=== PATIENT | male | born 1950 | race African-American/Black ===

== ENCOUNTER 2020-03-14 11:26 | Emergency (ER) | payer OTHER, MEDICARE ==
[~2020-03-14] VITALS: Ht 180.3 cm; Wt 90.7 kg
[~2020-03-14 11:26] MED LIST: ASPIR 8181 MG PO; CARDURA4 MG PO; CO Q-10100 MG PO; GLUCOTROL5 MG PO; HYZAAR 50-12.51 EACH PO; LIPITOR 10 MG10 M1 PO; METFORMIN HCL500 MG PO; NORVASC10 MG PO; ODOR FREE GARL100 MG PO; VITAMIN D1000 UNI1 PO
[2020-03-14 12:20] LABS: URINE BILIRUBIN NEGATIVE (Negative); URINE BLOOD TRACE (Negative); URINE CLARITY SL CLOUDY; URINE COLOR YELLOW; URINE GLUCOSE-RANDOM* NEGATIVE (Negative); URINE KETONES NEGATIVE (Negative); URINE NITRITE-REFLEX NEGATIVE (Negative); URINE PROTEIN (DIPSTICK) NEGATIVE (Negative); URINE UROBILINOGEN 0.2 E.U./dl (0.2-1.0)
[2020-03-14 12:29] LABS: URINE LEUKOCYTES-REFLEX 3+ (Negative)
[2020-03-14 12:45] LABS: HEMOGLOBIN 12.8 gm/dL (14.0-18.0); MCH 22.8 pg (26.0-34.0); MCHC 32.1 g/dL (28.0-37.0); MCV 71.2 fL (80.0-100.0); RBC 5.62 mil/uL (4.50-6.00); RDW 16.1 % (10.5-14.5); WBC 8.7 thou/uL (4.0-11.0)
[2020-03-14 12:55] LABS: CALCIUM 8.6 mg/dL (8.5-10.1); CREATININE 1.4 mg/dL (0.7-1.3)
[2020-03-14 13:11] LABS: BACTERIA-REFLEX >30 Many /HPF (None Seen); SQUAMOUS 0-3 Few /LPF (0-3); URINE WBC-REFLEX >25 Many /HPF (0-5)
[2020-03-14 13:12] LABS: CASTS None Seen /LPF (None Seen); CRYSTALS None Seen /LPF (None Seen); URINE RBC 0-2 Rare /HPF (0-2)
[2020-03-14] MEDS ORDERED: KEFLEX500 M1 PO (13:26)
[2020-03-14 14:19] VITALS: BP 127/62
== END 2020-03-14 14:19 | disposition home or self-care (01) ==
LOC: ER 11:26
PROVIDERS: Emergency Medicine
DX: N39.0 Urinary tract infection, site not specified (principal); R33.9 Retention of urine, unspecified; I10 Essential (primary) hypertension; E78.00 Pure hypercholesterolemia, unspecified; E11.9 Type 2 diabetes mellitus without complications; Z79.899 Other long term (current) drug therapy; Z79.82 Long term (current) use of aspirin; Z87.891 Personal history of nicotine dependence